=== PATIENT | female | born 1995 | race Caucasian/White ===

== ENCOUNTER 2023-05-21 09:42 | Emergency (ER) | payer SELFPAY ==
--- NOTE | 2023-05-21 09:46 | ERPHSYRPT ---
- History of Present Illness Time Seen by Provider: 05/21/23 09:45 Source: patient, family Exam Limitations: no limitations Physician History: pt presents with sore throat She had scratchy throat over the weekend but today has swlooen uvula - no prior Hx of this. swallowing OK but not wanting to speak as this aggravates it. No rashes, little other erythema in troat. swollen uvula. No nodes. Normal neuro and mental status. Chest clear, no wheezes or stridor. discussed risk/benefit of Epi, steroids, pepcid , benadryl, testing for Covid,RSV, Flu, Strep, and pt /spouse wish to proceed, . THese are ordered. results discussed. Timing/Duration: gradual onset Severity: moderate ENT Location: mouth, throat Prearrival Treatment: over the counter meds (new alkaselzer med this weekend only ) Associated Symptoms: nasal congestion/drainage, sore throat, voice change Allergies/Adverse Reactions: cephalexin Allergy (Verified 05/21/23 09:59) - Review of Systems Constitutional: No Fever, No Chills Eyes: No Symptoms Ears, Nose, & Throat: Nose Congestion, Sinus Drainage, Mouth Swelling, Throat Swelling Respiratory: No Cough, No Dyspnea Cardiac: No Chest Pain, No Edema, No Syncope Abdominal/Gastrointestinal: No Abdominal Pain, No Nausea, No Vomiting, No Diarrhea Genitourinary Symptoms: No Dysuria Musculoskeletal: No Back Pain, No Neck Pain Skin: No Rash Neurological: No Dizziness, No Focal Weakness, No Sensory Changes Psychological: No Symptoms Endocrine: No Symptoms Hematologic/Lymphatic: No Symptoms Immunological/Allergic: No Symptoms All Other Systems: Reviewed and Negative - Past Medical History Pertinent Past Medical History: No - Nursing Vital Signs Nursing Vital Signs: Initial Vital Signs Pulse Rate 119 H 05/21/23 10:01 Respiratory Rate 19 05/21/23 10:01 Blood Pressure 154/103 05/21/23 10:01 O2 Sat by Pulse Oximetry 99 05/21/23 10:01 Pain Scale Pain Intensity 0 - Physical Exam General Appearance: no apparent distress, alert Eye Exam: bilateral eye: PERRL, EOMI Ear Exam: bilateral ear: auricle normal, canal normal, TM normal Nasal Exam: discharge Throat Exam: moist mucus membranes, uvula swelling, voice changes, No tonsillar exudate Neck Exam: supple, full range of motion, trachea midline Cardiovascular/Respiratory Exam: normal breath sounds, regular rate/rhythm Abdominal Exam: non-tender, soft Neurologic Exam: alert, oriented x 3, sensation nml, No motor deficits Skin Exam: normal color, warm, dry SpO2 Interpretation: normal SpO2: 99 O2 Delivery: Room Air - Course Nursing assessment & vital signs reviewed: Yes Ordered Tests: Active Orders 24 hr Category Date Time Status IV Insertion STAT Care 05/21/23 10:29 Active Pulse Oximetry (ED) STAT Care 05/21/23 10:29 Active Medication Summary Discontinued Medications Generic Name Dose Route Start Last Admin Trade Name Yemiq PRN Reason Stop Dose Admin Methylprednisolone Sodium 0 mg 05/21/23 10:29 05/21/23 11:05 Succinate 125 mg/ Sterile IV 05/21/23 10:30 125 mg Water 2 ml STAT ONE Administration Diphenhydramine HCl 50 mg 05/21/23 10:29 05/21/23 11:04 Diphenhydramine Hcl 50 Mg/Ml Vial IV 05/21/23 10:30 50 mg STAT ONE Administration Diphenhydramine HCl Confirm 05/21/23 10:52 Diphenhydramine Hcl 50 Mg/Ml Vial Administered 05/21/23 10:53 Dose 50 mg .ROUTE .STK-MED ONE Epinephrine HCl 0.3 mg 05/21/23 10:29 05/21/23 10:55 Epinephrine 1 Mg/1 Ml Pf Amp 1 Mg/Ml Ml SQ 05/21/23 10:30 0.3 mg STAT ONE Administration Epinephrine HCl Confirm 05/21/23 10:52 Epinephrine 1 Mg/1 Ml Pf Amp 1 Mg/Ml Ml Administered 05/21/23 10:53 Dose 1 mg .ROUTE .STK-MED ONE Famotidine 20 mg 05/21/23 10:29 05/21/23 11:02 Famotidine 20 Mg/1 Vial IV 05/21/23 10:30 20 mg STAT ONE Administration Famotidine Confirm 05/21/23 10:52 Famotidine 20 Mg/1 Vial Administered 05/21/23 10:53 Dose 20 mg IV .STK-MED ONE Sodium Chloride 1,000 mls @ 999 mls/hr 05/21/23 10:29 05/21/23 12:03 Sodium Chloride 0.9% 1000 Ml IV 05/21/23 11:29 Infused .Q1H1M STA Infusion Sodium Chloride Confirm 05/21/23 10:52 Sodium Chloride 0.9% 1000 Ml Administered 05/21/23 10:53 Dose 1,000 mls @ ud .ROUTE .STK-MED ONE Methylprednisolone Sodium Succinate Confirm 05/21/23 10:52 Methylprednis Sod Succ 125 Mg/2 Ml Vial Administered 05/21/23 10:53 Dose 125 mg .ROUTE .STK-MED ONE Sterile Water Confirm 05/21/23 10:52 Water For Injection,Sterile 10 Ml Vial Administered 05/21/23 10:53 Dose 10 ml IJ .STK-MED ONE Lab/Rad Data: Laboratory Results 05/21/23 05/21/23 Range/Units 10:39 09:59 Influenza Type A Ag NEGATIVE (NEGATIVE) Influenza Type B Ag NEGATIVE (NEGATIVE) RSV (PCR) NEGATIVE (NEGATIVE) SARS-CoV-2 (PCR) NEGATIVE (NEGATIVE) Group A Strep Antibody DETECTED (NEGATIVE) - Progress Progress: improved, re-examined Progress Note: 05/21/23 14:10 pt symptoms have now resolved, discussed strep and furhter tx with pt and spouse/signif other, including risks/benefits and they wish Tx amox for strep and steroid jose, benedryl, OTC pepcid, and I advised epipen just in case it recurs and also discussed imaging of neck to rule out residual swelling , but they wish to decline that at this time and wish oupt f/u and tx and to return meantime if any symptoms recur. They have been advised that we have not determined a precise cause and that the condition could still be progressing or recur at any time. They have normal mental status and the cap[place] to make this choice. 05/21/23 14:14 THe Uvula is now normal throught clear without swelling or erythema, and voice is normal , swallowing without problems or symptoms in ER. 05/21/23 14:15 has taken amoxcil before without problems. Counseled pt/family regarding: lab results, diagnosis, need for follow-up Medical Desision Making - Independent Historian Additional History obtained from: Relative/friend - Discussion of managment Reviewed:: Test results, Need for additional workup Agreed on:: Treatment plan, need for follow-up - Diagnostic Testing Diagnostic test were ordered, analyzed, and reviewed by me: Yes Radiological Interpretation: Reviewed by me - Risk of complications The pt has a mod risk of morbidity or mortality based on: Need for prescription drug management The pt has a high risk of morbidity or mortality based on: Decision regarding hospitilization or escalation of hosp level of care - Departure Departure Disposition: Home Clinical Impression: resolved allergic reaction, strepthroat Condition: Good Critical Care Time: No Referrals: DOCTOR,NO FAMILY [Primary Care Provider] - Follow up/PCP as directed Instructions: Sore Throat, Adult (DC), Strep Throat (DC), Angioedema (DC), Allergic Reaction ED Additional Instructions: we haVE NOT YET DETERMINED THE EXACT CAUSE FOR YOUR SYMPTOMS ALTHOUGH IT MAY HAVE BEEN SOME TYPE OF ALLERGIC REACTION. yOU ALSO HAVE STREPTHROAT WHICH MAY HAVE PLAYED A ROLE. iF SYMPTOMS RECUR - RETURN MEANTIME, BUT SEE YOUR dR. TO COMPLETE THE ALLERGIC WORKUP, we are prescribing a new epipen for emergencies, and steroid dose jose to help prevent recurrences, Also take over the counter benedryl and pepcid until seeing your Dr. Return meantime if short of breath, trouble swallowing ot talking, or any other concerns. stop taking the new medicine ala-selzter just in case that was a cause. Prescriptions: Amoxicillin 500 mg PO TID #30 tablet EPINEPHrine [Epipen 2-Jose] 0.3 mg IM UD #1 packet Methylprednisolone Packet [Medrol Dosepack] 4 mg PO UD #30 packet
[2023-05-21 10:15] VITALS: TEMP 98
[2023-05-21] MEDS ORDERED: Pepcid 20 MG VIAL IV ONE ×2 (10:29→10:52)
[2023-05-21] MEDS ORDERED: Epinephrine Preservative Free 1 MG/ML SQ ONE (10:29)
[2023-05-21] MEDS ORDERED: solu-MEDROL 125 MG, Sterile H2O 10 ml 2 ML IV ONE ×2 (10:29)
[2023-05-21] MEDS ORDERED: Sodium Chloride 0.9% 1000 ML 1,000 ML IV STA (10:29)
[2023-05-21] MEDS ORDERED: BENADRYL 50 MG/ML IV ONE (10:29)
[2023-05-21 10:40] LABS: INFLUENZA A NEGATIVE (NEGATIVE); INFLUENZA B NEGATIVE (NEGATIVE); RESPIRATORY SYNCTIAL VIRUS NEGATIVE (NEGATIVE); SARS-CoV-2 Xpert Express NEGATIVE (NEGATIVE)
[2023-05-21] MEDS ORDERED: Epinephrine Preservative Free 1 MG/ML ONE (10:52)
[2023-05-21] MEDS ORDERED: Sterile H2O 10 ml IJ ONE (10:52)
[2023-05-21] MEDS ORDERED: solu-MEDROL ONE (10:52)
[2023-05-21] MEDS ORDERED: Sodium Chloride 0.9% 1000 ML 1,000 ML ONE (10:52)
[2023-05-21] MEDS ORDERED: BENADRYL 50 MG/ML ONE (10:52)
[2023-05-21 14:05] VITALS: O2SAT 99
[2023-05-21 14:29] VITALS: BP 119/72; PULSE 134; RESP 21
== END 2023-05-21 14:32 | disposition home or self-care (01) ==
LOC: ED 09:42
DX: J02.0 Streptococcal pharyngitis (principal); T78.40XA Allergy, unspecified, initial encounter; Z79.52 Long term (current) use of systemic steroids
CPT/HCPCS: 0241U; 36000; 87651; 94760; 96372; 96374; 96375; 99284; J0171; J1200; J2930